=== PATIENT | female | born 1970 | race Hispanic/Latino ===

== ENCOUNTER 2016-10-20 13:50 | Emergency (ER) | payer OTHER ==
[~2016-10-20] VITALS: Ht 157.5 cm; Wt 54.4 kg
[~2016-10-20 13:50] MED LIST: IBUPROFEN800 M1 PO; TRAMADOL HCL50 M1 PO; VICODIN 5-3001 EACH PO
[2016-10-20] MEDS ORDERED: LISINOPRIL10 M1 PO (16:22)
[2016-10-20] MEDS ORDERED: VITAMIN C500 M6 PO (16:23)
[2016-10-20 17:05] LABS: ABSOLUTE BASOPHIL COUNT 0.1 /CUMM (0.0-0.2); ABSOLUTE EOSINOPHIL COUNT 0.2 /CUMM (0.0-0.7); ABSOLUTE GRANULOCYTE CT 10.2 /CUMM (1.4-6.5); ABSOLUTE LYMPH COUNT 2.1 /CUMM (1.2-3.4); ABSOLUTE MONOCYTE COUNT 0.8 /CUMM (0.10-0.60); BASOPHIL % 0.8 % (0.0-2.0); EOSINOPHIL % 1.3 % (0-5); GRANULOCYTE % 76.1 % (42.2-75.2); HEMATOCRIT 42.9 % (37-47); MEAN CORPUSCULAR HGB 30.2 PG (27.0-31.0); MEAN CORPUSCULAR HGB CONC 33.2 G/DL (33.0-37.0); MEAN CORPUSCULAR VOLUME 90.9 FL (81.0-99.0); MEAN PLATELET VOLUME 8.5 FL (7.4-10.4); PLATELET COUNT 319 /CUMM (130-400); RBC DISTRIBUTION WIDTH 13.8 % (11.5-14.5); RED BLOOD CELL CT 4.72 /CUMM (4.20-5.40); WHITE BLOOD CELL COUNT 13.4 /CUMM (4.8-10.8)
--- NOTE | 2016-10-20 17:11 | ED SKIN/ALLERGY COMPLAINT ---
History of Present Illness General Chief Complaint: General Adult Stated Complaint: LUMP ON LFT BREAST Source: patient Exam Limitations: no limitations Allergies Coded Allergies: No Known Allergies (10/20/16) Triage Note: 46 Y/O FEMALE C/O "LARGE LUMP" TO L BREAST X 3 DAYS; STATES AREA APPEARS RED AND TENDER TO TOUCH. DENIES DRAINAGE. HAS BEEN TAKING 800MG MOTRIN WITH NO RELIEF OF SYMPTOMS - LAST DOSE THIS AM. AFEBRILE. Triage Nurses Notes Reviewed? yes HPI: This patient is a 46-year-old female who presented to the emergency department today for evaluation of left breast redness and pain. She reported that she noticed the pain approximately 3 days ago. She reported that the area around her area left has been read, warm, and painful. She reported the pain is throbbing in nature. The pain gets up to a 10 out of 10. It is worse with palpation. The patient has been taking 800 mg of Motrin without any relief of her symptoms. No palliative factors. The patient denied any radiation of the pain. She denied any fevers or chills. The patient denied any trauma to the area. She denied any discharge from the nipple. No discharge from the area of redness. The patient is not breast-feeding. She reported that she does have a history of breast cancer in her family in an aunt. She had a mammogram done approximately 2 years ago for a benign right sided breast lump. The patient denied any chest pain, difficult to breathing, back pain, abdominal pain, nausea , vomiting, or any other associated symptoms. (MIRZA JARQUIN,ARAM) Vital Signs & Intake/Output Vital Signs & Intake/Output Vital Signs Date Time Temp Pulse Resp B/P Pulse O2 O2 Flow FiO2 Ox Delivery Rate 10/20 1903 98.0 76 18 172/99 97 Room Air 10/20 1657 98.2 71 20 149/74 99 Room Air ED Intake and Output 10/21 0000 10/20 1200 Intake Total Output Total 1 Balance -1 Output, Urine 1 Patient 120 lb Weight Reconcile Medications Ascorbate Calcium (Vitamin C) (Unknown Strength) TABLET (Unknown Dose) PO DAILY SUPPLEMENT (Reported) Ibuprofen 800 MG TABLET 1 TAB PO TID PRN PAIN AND INFLAMMATION Lisinopril 10 MG TABLET 1 TAB PO DAILY BP (Reported) Oxycodone HCl/Acetaminophen (Percocet 5-325 MG Tablet) 5 MG-325 MG TABLET 1 TAB PO BID PRN PAIN Sulfamethoxazole/Trimethoprim (Bactrim Ds Tablet) 800 MG-160 MG TABLET 1 TAB PO BID ABSCESS (PATRICK DE JESUS,GABE Zay) Past History Travel History Traveled to [place] past 21 day No Medical History Any Pertinent Medical History? see below for history Neurological: NONE EENT: NONE Cardiovascular: hypertension Respiratory: NONE Gastrointestinal: NONE Hepatic: NONE Renal: NONE Musculoskeletal: NONE Psychiatric: NONE Endocrine: NONE Blood Disorders: NONE Cancer(s): NONE Surgical History Surgical History: non-contributory Psychosocial History What is your primary language Maltese Tobacco Use: Current Not Daily Family History Hx Contributory? No (ARAM BLUE PA-C) Review of Systems Review of Systems Constitutional: Reports: no symptoms. EENTM: Reports: no symptoms. Respiratory: Reports: no symptoms. Cardiovascular: Reports: no symptoms. GI: Reports: no symptoms. Genitourinary: Reports: no symptoms. Musculoskeletal: Reports: no symptoms. Skin: Reports: see HPI. Neurological/Psychological: Reports: no symptoms. All Other Systems: Reviewed and Negative (ARAM BLUE PA-C) Physical Exam Physical Exam General Appearance: well developed/nourished, no apparent distress, alert, awake Comments: Well-developed well-nourished person in no acute distress HEENT: Normal EENT exam, head normocephalic, moist mucous membranes Neck: Supple. No lymphadenopathy Back: Normal gait Cardiovascular: Regular rate and rhythm with no murmurs, rubs, or gallops Respiratory: No respiratory distress. Speaking in full sentences. Lungs clear to auscultation bilaterally with no wheezes, rales, or rhonchi Breast examination: Approximately 4 cm in greatest diameter area of macular erythema surrounding the areola on the left extending medially. Tenderness to palpation. Warm to the touch. No drainage from the site. Mildly indurated. No fluctuance noted. No drainage from the nipple. No breast masses appreciated. No dimpling of the skin. Extremity: Normal and equal pulses. Neuro: Alert oriented x3, cranial nerves II through XII grossly intact. Skin: No appreciable rash on exposed skin, skin is warm and dry. Psych: Mood and affect is normal (ARAM BLUE PA-C) Progress Differential Diagnosis: abscess/cellulitis, allergic reaction, contact dermatitis, drug reaction, MASTITIS, MALIGNANCY, [place] Comments: 10/20/2016 6:51:31 PM: I was at the patient's bedside for reevaluation. She reported the tramadol did not help her pain. Discussed the ultrasound results with the patient and her family member who is at the bedside. Likely abscess formation. I spoke with Dr. GARRIDO. She recommended starting this patient on Bactrim and having her follow-up in the office for follow-up and possible aspiration. (ARAM BLUE PA-C) Plan of Care: Orders Procedure Date/time Status COMPREHENSIVE METABOLIC PANEL 10/20 1641 Complete CBC WITHOUT DIFFERENTIAL 10/20 164 Complete Laboratory Tests 10/20/16 1655: Anion Gap 11, Estimated GFR > 60, BUN/Creatinine Ratio 20.0, Glucose 108 H, Calcium 9.4, Total Bilirubin 0.5, AST 21, ALT 45, Alkaline Phosphatase 87, Total Protein 7.3, Albumin 4.1, Globulin 3.2, Albumin/Globulin Ratio 1.3, CBC w Diff NO MAN DIFF REQ, RBC 4.72, MCV 90.9, MCH 30.2, RDW 13.8, MPV 8.5, Gran % 76.1 H , Lymphocytes % 15.6 L, Monocytes % 6.2, Eosinophils % 1.3, Basophils % 0.8, Absolute Granulocytes 10.2 H, Absolute Lymphocytes 2.1, Absolute Monocytes 0.8 H, Absolute Eosinophils 0.2, Absolute Basophils 0.1, PUBS MCHC 33.2 Departure Departure Disposition: HOME OR SELF CARE Condition: Stable Clinical Impression Primary Impression: Breast abscess Referrals: HEMA GIBSON,CATHERINE UNKNOWN (PCP) Additional Instructions: Please take the antibiotic prescribed for its full duration and as directed. Take medication for pain as directed. Please call Sunday morning to make an appointment with the physician's information has been provided to this packet for follow-up and further evaluation. Continue to take [id number] Motrin for any fevers. Return to the emergency department for any worsening symptoms or concerns. Departure Forms: Customer Survey General Discharge Information Prescriptions: Current Visit Scripts Sulfamethoxazole/Trimethoprim (Bactrim Ds Tablet) 1 TAB PO BID #20 TAB Oxycodone HCl/Acetaminophen (Percocet 5-325 MG Tablet) 1 TAB PO BID PRN PAIN #8 TAB (MIRZA PA-C,ARAM) PA/DIRECTOR BROADCAST Co-Sign Statement Statement: ED Attending supervision documentation- [] I saw and evaluated the patient. I have also reviewed all the pertinent lab results and diagnostic results. I agree with the findings and the plan of care as documented in the PA's/DIRECTOR BROADCAST's documentation. [X] I have reviewed the ED Record and agree with the PA's/DIRECTOR BROADCAST's documentation. [] Additions or exceptions (if any) to the PAs/DIRECTOR BROADCAST's note and plan are summarized below: [] (GABE NGUYEN DO
--- NOTE | 2016-10-20 17:38 | ULTRASOUND REPORT ---
EXAMINATION: US BREAST, UNILATERAL LEFT DIAGNOSTIC CLINICAL INFORMATION: Left breast erythema, tenderness, medial to the areola. Evaluate for abscess or mass. COMPARISON: None. TECHNIQUE: High-resolution grayscale sonography of the left breast was performed by a technologist with a high frequency linear transducer following a standardized protocol. Real-time assessment by the reading radiologist was also performed. FINDINGS: In the subareolar 6:00 position of the left breast, a 1.8 x 1.9 x 1.7 cm mixed echogenicity superficial mass is seen with increased sound through transmission and prominent surrounding vascular flow. This finding is most consistent with a small abscess given the clinical history provided. No significant associated ductal dilatation is seen. Small amount of edema is seen posterior to this collection. In the left axilla, a morphologically abnormal lymph node is seen with an eccentrically thickened and hypervascular cortex, measuring up to 0.7 cm in thickness. IMPRESSION: 1. Complex mixed echogenicity collection is seen measuring just under 2 cm in the subareolar left breast 6:00 position with some associated edema in the posterior soft tissues and prominent hyperemia in the surrounding soft tissues. Findings are most consistent with a small abscess collection. Close clinical correlation and follow-up ultrasound post treatment is recommended to document resolution of findings and exclude an underlying mass. 2. Morphologically abnormal left axillary lymph node is seen, most likely reactive. This can also be reassessed at the time of the above suggested follow-up exam. ASSESSMENT: Left breast: ACR BI-RADS 3: Probably benign finding - short interval follow up. RECOMMENDATIONS: Closed clinical correlation and appropriate management of the presumed subareolar abscess collection is recommended. Follow-up bilateral mammogram and left breast ultrasound are also recommended post treatment to document resolution of findings and exclude underlying mass.
[2016-10-20] MEDS ORDERED: PERCOCET 5-3251 EACH PO (18:51)
[2016-10-20] MEDS ORDERED: BACTRIM DS TAB1 EACH PO (18:51)
[2016-10-20 19:03] VITALS: BP 172/99
== END 2016-10-20 19:05 ==
LOC: ERH 13:50
PROVIDERS: Physician Assistant
DX: N61.1 Abscess of the breast and nipple (principal)
CPT/HCPCS: 76642-LT